=== PATIENT | male | born 1965 | race African-American/Black ===

== ENCOUNTER 2024-01-28 01:36 | Emergency (ER) | payer MEDICARE, MEDICAID ==
[~2024-01-28] VITALS: Ht 185.4 cm; Wt 70.0 kg
[~2024-01-28 01:36] MED LIST: PHEN100C4 PO
[2024-01-28 01:39] VITALS: O2SAT 100
[2024-01-28] MEDS: LORAZEPAM 2MG/ML INJ IV ONE (02:30)
[2024-01-28] MEDS: SODIUM CHLORIDE 0.9% 1,000 ML IV ONE (02:48)
[2024-01-28 03:07] LABS: BASOPHILS % 0.7 % (0.0-2.0); EOSINOPHILS % 1.6 % (0.0-5.0); HEMATOCRIT. 39.2 % (42.0-52.0); HEMOGLOBIN. 12.9 g/dL (14.0-18.0); MEAN PLATELET VOLUME 7.1 fl (7.4-10.4); MONOCYTES % 7.8 % (2.0-8.0); NEUTROPHILS % 61.9 % (40.0-76.0); PLATELET 261 x1000/uL (130-400); RED BLOOD CELL COUNT 4.04 mill/uL (4.7-6.1); RED CELL DISTRIBUTION WIDTH 13.9 % (11.6-14.6); WHITE BLOOD COUNT 3.7 x1000/uL (4.5-11.0)
[2024-01-28 03:11] LABS: CHLORIDE 101 mEq/L (98-107); POTASSIUM 3.9 mEq/L (3.5-5.1); SODIUM 138 mEq/L (136-145)
[2024-01-28 03:12] LABS: CARBON DIOXIDE 33 mEq/L (21-32)
[2024-01-28 03:17] LABS: GLUCOSE 114 mg/dL (70-105); UREA NITROGEN BLOOD 13 mg/dL (9-23)
[2024-01-28 03:18] LABS: ETHANOL BLOOD < 10 mg/dL (<10); PHENYTOIN 2.5 ug/mL (10-20); TROPONIN I HIGH SENSITIVITY 8 ng/L (3.0-53)
[2024-01-28 03:50] LABS: CLARITY URINE CLEAR (CLEAR); COLOR URINE YELLOW (YELLOW); GLUCOSE URINE NEGATIVE (NEGATIVE); KETONES URINE NEGATIVE (NEGATIVE); LEUKOCYTE ESTERASE URINE NEGATIVE (NEGATIVE); NITRITE URINE NEGATIVE (NEGATIVE); OCCULT BLOOD URINE NEGATIVE (NEGATIVE); PH URINE 6.5 (4.5-8.0); PROTEIN URINE NEGATIVE (NEGATIVE); SPECIFIC GRAVITY URINE 1.013 (1.005-1.030)
[2024-01-28 03:57] LABS: *AMPHETAMINES SCREEN URINE NEGATIVE (NEGATIVE); *BARBITURATES SCREEN URINE NEGATIVE (NEGATIVE); *BENZODIAZEPINES SCREEN URINE PRESUMPTIVE POSITIVE (NEGATIVE); *COCAINE SCREEN URINE NEGATIVE (NEGATIVE); CANNABINOID URINE SCREEN PRESUMPTIVE POSITIVE (NEGATIVE); METHADONE URINE SCREEN NEGATIVE (NEGATIVE); OPIATES URINE SCREEN NEGATIVE (NEGATIVE); PHENCYCLIDINE URINE SCREEN NEGATIVE (NEGATIVE)
[2024-01-28 03:58] LABS: ECSTASY MDMA SCREEN URINE NEGATIVE (NEGATIVE)
[2024-01-28] MEDS: PHENYTOIN SODIUM 100MG/2ML VIAL IV ONE (05:18)
[2024-01-28] MEDS ORDERED: IPRATROPIUM/ALBUTEROL 0.5-3(2.5)MG/3ML NEB HHN PRN (05:45)
[2024-01-28] MEDS ORDERED: ACETAMINOPHEN 325MG TABLET PO PRN (05:45)
[2024-01-28] MEDS ORDERED: CLONIDINE 0.1MG TABLET PO PRN (05:45)
[2024-01-28] MEDS ORDERED: DOCUSATE SODIUM 100MG CAPSULE PO PRN (05:45)
[2024-01-28] MEDS ORDERED: GUAIFENESIN 200MG/10ML SUGAR FREE UDC PO PRN (05:45)
[2024-01-28] MEDS ORDERED: MAGNESIUM/ALUMINUM HYDROXIDE/SIMETHICONE 30ML UDC PO PRN (05:45)
[2024-01-28] MEDS ORDERED: ONDANSETRON HCL 4MG/2ML INJ IV PRN (05:45)
[2024-01-28 07:30] VITALS: BP 126/79; PULSE 56; RESP 15; TEMP 37.05852; O2SAT 96
[2024-01-28] MEDS: LEVETIRACETAM 500MG/5ML CUP PO SCH (08:45)
[2024-01-28] MEDS: CARBAMAZEPINE 200MG TABLET PO SCH (08:45)
[2024-01-28] MEDS: AMLODIPINE 5MG TABLET PO SCH (08:46)
[2024-01-28 08:55] LABS: IRON 58 ug/dL (65-175)
[2024-01-28 08:56] LABS: LDL CHOLESTEROL 98 mg/dL (5-100); TRIGLYCERIDE 61 mg/dL (0-150)
[2024-01-28 08:57] LABS: CREATINE KINASE 196 IU/L (46-171); HDL CHOLESTEROL 61 mg/dL (>55)
[2024-01-28 08:58] LABS: CHOLESTEROL 168 mg/dL (<200); TOTAL IRON BINDING CAPACITY 291 ug/dl (250-425)
[2024-01-30] MEDS ORDERED: PHEN100C12 PO (13:01)
[2024-01-30] MEDS ORDERED: BENA40TA91 PO (13:01)
[2024-01-30] MEDS ORDERED: FOLI-43 PO (13:01)
[2024-01-30] MEDS ORDERED: AMLO10TA80 PO (13:01)
[2024-01-30] MEDS ORDERED: LEVE500T19 PO (13:01)
[2024-01-30] MEDS ORDERED: ATOR10TA69 PO (13:01)
[2024-01-30] MEDS ORDERED: IBUP-2029 PO (13:01)
[2024-01-30] MEDS ORDERED: CHOL2000 PO (13:01)
[2024-01-30] MEDS ORDERED: ESCI20TA37 PO (13:01)
[2024-01-30] MEDS ORDERED: CARB200T6 PO (13:01)
[2024-01-30] MEDS ORDERED: HYDR25TA PO (13:01)
[2024-01-30] MEDS ORDERED: IBUP-2030 PO (13:01)
[2024-01-30] MEDS ORDERED: ALBUTEROL (13:01)
[2024-01-30] MEDS ORDERED: [UNRECOGNIZED DRUG - CODE] PO (13:01)
[2024-02-07 13:29] LABS: FOLIC ACID (FOLATE) SERUM 14.09 ng/mL (>5.38)
[2024-02-07 13:30] LABS: FERRITIN 57 ng/mL (22-322); VITAMIN B12 SERUM 386 pg/mL (211-911)
== END 2024-01-28 08:51 | disposition left against medical advice (07) ==
LOC: ER 01:36
DX: G40.409 Other generalized epilepsy and epileptic syndromes, not intractable, without status epilepticus (principal); I10 Essential (primary) hypertension; Z79.899 Other long term (current) drug therapy
CPT/HCPCS: 80061; 80305; 80048; 81003; 80320; 82550; 82607; 80185; 82728; 82746; 82962; 83036; 83540; 83550; 85025; 84484; 36415; 96361; 96374; 99285; J1165; J7030; G0480